=== PATIENT | male | born 1995 | race Caucasian/White ===

== ENCOUNTER 2023-05-25 08:46 | Emergency (ER) | payer SELFPAY ==
[2023-05-25] VITALS (18 sets, daily range): BP systolic 111–142; BP diastolic 72–85; PULSE 82–109; RESP 14–29; TEMP 36.4; O2SAT 96–100; BMI 42.7
--- NOTE | 2023-05-25 08:57 | ECG_ITS ---
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
--- NOTE | 2023-05-25 08:57 | ED.SYNCOPE1 ---
HPI - Syncope General Chief Complaint: Syncope Stated Complaint: SYNCOPE Time Seen by Provider: 05/25/23 08:57 History of Present Illness HPI narrative: Patient presents to emergency department via EMS with a complaint of syncope. Patient states he smoked marijuana this morning and he took [id number] Benadryl 50 mg which she normally takes without any problems. He walked over to talk to his mom and went to lean forward onto the couch and then he went backwards. As he passed out backwards mom noted that his eyes had rolled back he did not have any shaking. The episode lasted approximately 5-10 seconds. Last time he ate was last night at midnight. Patient's blood sugar was 191. Patient denies any headache. He denies any visual disturbance, speech difficulties. He denies any chest pain, or shortness of breath. She denies ever passing out before. He does not have any medical problems. Patient states maybe he hasn't been drinking enough fluids. He does not feel dizzy currently. He denies any palpitations or diaphoresis. He denied any nausea, vomiting, or diarrhea. When the patient arrived she took a sip of his drink and vomited. He did not have any hematemesis. Patient denies any cough, runny nose, sore throat or upper respiratory infection symptoms. He denies any flank pain, hematuria, dysuria. He denies any trauma. Related Data Home Medications Medication Instructions Recorded Confirmed No Known Home Medications 05/25/23 05/25/23 Allergies Allergy/AdvReac Type Severity Reaction Status Date / Time No Known Drug Allergies Allergy Verified 05/25/23 08:51 Review of Systems ROS Status of ROS 10 or more systems reviewed and unremarkable except as noted in history and below [facility] Medical History (Updated 05/25/23 @ 11:03 by Ladan Vallejo MD) Surgical History (Updated 05/25/23 @ 09:16 by Faisal Adair) Social History Smoking status: Current every day smoker Exam Narrative Exam Narrative: Nurses notes and vital signs reviewed and patient is not hypoxic. General: Nontoxic, Well-appearing and in no apparent distress. Skin: Warm, dry, no pallor noted. No Rash Head: Normocephalic, atraumatic. Neck: Supple, non-tender. Eye: Pupils are equal, round and EOMI. No scleral icterus. Ears, Nose, Mouth, and Throat: TM clear, no posterior oropharynx erythema or nasal mucosal hypertrophy, uvula is mid-line Oral mucosa is moist Cardiovascular: Regular Rate and Rhythm without murmur, gallop or rub. Respiratory: No accessory muscle use or respiratory distress. Lungs are clear to auscultation, no wheezing, rales or rhonchi Chest Wall: no tenderness Back: No midline thoracic or lumbar vertebral tenderness. No CVA tenderness Musculoskeletal: normal ROM, no calf or popliteal tenderness, no lower extremity edema/swelling GI: Abdomen is soft, non-distended. Normal bowel sounds. No masses appreciated. No tenderness to palpation. No rebound, guarding, or rigidity noted. Neurological: A&O x4. No cranial nerve dysfunction observed. No truncal ataxia. Moves all extremities. Sensation intact. Psychiatric: Cooperative and interactive. Normal mood and affect. Constitutional Vital Signs, click to edit/add: Last Vital Signs Temp 97.6 F 05/25/23 08:51 Pulse 82 05/25/23 11:06 Resp 18 05/25/23 11:06 BP 111/72 05/25/23 11:06 Pulse Ox 97 05/25/23 11:06 O2 Del Method Room Air 05/25/23 11:06 Course Vital Signs Vital signs: Vital Signs Temperature 97.6 F 05/25/23 08:51 Pulse Rate 109 H 05/25/23 08:51 Respiratory Rate 18 05/25/23 08:51 Blood Pressure 142/75 H 05/25/23 08:51 Pulse Oximetry 100 05/25/23 08:51 Oxygen Delivery Method Room Air 05/25/23 08:51 Temperature 97.6 F 05/25/23 08:51 Pulse Rate 82 05/25/23 11:06 Respiratory Rate 18 05/25/23 11:06 Blood Pressure 111/72 05/25/23 11:06 Pulse Oximetry 97 05/25/23 11:06 Oxygen Delivery Method Room Air 05/25/23 11:06 MDM - Syncope MDM Narrative Medical decision making narrative: Patient was given 1 L of normal saline. He was given antibiotics and he felt better. He denied any he was in the emergency department. Patient states he does smoke marijuana and he gets up from [place]. We discussed stopping marijuana abuse.EKG showed a sinus tachycardia without any acute ischemic changes. The patient's HI interval is slightly shortened. the patient was discussed with Dr. Jones who advised the patient to follow up with him as an outpatient. Instructed to return to the emergency department if he develops any chest pain, palpitations, shortness of breath, or if he has any CONCERNS. At this time the patient is without objective evidence of an acute process requiring hospitalization or inpatient management. The patient has remained hemodynamically stable. No additional indication for emergent studies at this time. I answered all questions. Discussed discharge instructions including standard anticipatory guidance and what should prompt a return to the emergency department, including if they get worse are not getting better or develops any new or concerning symptoms. I've given them specific time frame in which to follow-up, and who to follow-up with. The patient demonstrates understanding. Patient is nontoxic and stable for discharge with outpatient follow-up. This note was created with the assistance of a speech recognition program. Although the intention is to generate documents that actually reflects the content of the visit, no guarantees can be provided that every mistake has been identified and corrected by editing. Differential Diagnosis Differential diagnosis: Likely syncope due to orthostatic hypotension, vasovagal syncope and dehydration Lab Data Attestation: I reviewed the patient's lab results. Labs: Lab Results 05/25/23 05/25/23 Range/Units 09:12 09:17 WBC 8.6 (4.0-11.0) 10^3/uL RBC 4.78 (4.70-6.10) 10^6/uL Hgb 14.0 (14.0-18.0) g/dL Hct 42.2 (42.0-54.0) % MCV 88.3 (80.0-94.0) fL MCH 29.3 (25.9-34.0) pg MCHC 33.2 (29.9-35.2) g/dL RDW 13.3 (11.0-15.0) % Plt Count 349 (150-450) 10^3/uL MPV 9.9 (9.5-13.5) fL Neut % (Auto) 62.2 (43.0-75.0) % Lymph % (Auto) 26.8 (20.5-60.0) % [place] % (Auto) 6.4 (1.7-12.0) % Eos % (Auto) 2.3 (0.9-7.0) % Baso % (Auto) 0.7 (0.2-2.0) % Neut # (Auto) 5.3 (1.4-6.5) 10^3/uL Lymph # (Auto) 2.3 (1.2-3.8) 10^3/uL Gladwin # (Auto) 0.6 (0.3-0.8) 10^3/uL Eos # (Auto) 0.2 (0.0-0.7) 10^3/uL Baso # (Auto) 0.1 (0.0-0.1) 10^3/uL Abs Immat Gran (auto) 0.14 H (0.00-0.03) 10^3/uL Imm/Tot Granulo (auto) 1.6 H (0.0-0.5) % PT 10.6 (9.0-11.6) sec INR 1.00 APTT 24.0 (22.3-36.2) sec VBG pH 7.382 (7.330-7.430) VBG pCO2 52.5 H (40.0-52.0) mmHg Sodium 138 (136-145) mmol/L Potassium 3.3 L (3.5-5.1) mmol/L Chloride 101 (98-107) mmol/L Carbon Dioxide 29.5 (21.0-32.0) mmol/L Anion Gap 10.8 BUN 12.0 (7.0-18.0) mg/dL Creatinine 1.02 (0.70-1.30) mg/dL Est GFR ( Amer) >60 (>=60) Est GFR (Non-Af Amer) >60 (>=60) BUN/Creatinine Ratio 11.8 Glucose 198 H (74-106) mg/dL Calcium 9.2 (8.5-10.1) mg/dL Magnesium 1.9 (1.8-2.4) mg/dL Total Bilirubin 0.5 (0.2-1.0) mg/dL AST 22 (15-37) U/L ALT 21 (16-63) U/L Alkaline Phosphatase 101 (46-116) U/L Troponin I High Sens <4.0 L (4.0-76.1) pg/mL Total Protein 7.8 (6.4-8.2) g/dL Albumin 4.1 (3.4-5.0) g/dL Globulin 3.7 g/dL Albumin/Globulin Ratio 1.1 Salicylates <2.8 (<=19.9) mg/dL Acetaminophen <2.0 L (10.0-30.0) ug/mL Ethanol Quant <3 mg/dL ECG Data Attestation: I personally reviewed and interpreted this ECG as follows: Discharge Plan Discharge Chief Complaint: Syncope Clinical Impression: Marijuana abuse, Syncope, Shortened HI interval, Dehydration Patient Disposition: Home, Self-Care Time of Disposition Decision: 11:01 Condition: Good Mode of Transportation: Private Vehicle Prescriptions / Home Meds: No Action No Known Home Medications Instructions: Syncope (ED), Cannabis Use Disorder (ED) Additional Instructions: Stop marijuana abuse. Plenty of fluids. 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 Stand Alone Forms: Portal Instructions Referrals: Mohit Sadler MD [Physician] - 1 week Discharge Date/Time: 05/25/23 11:17
[2023-05-25] MEDS: 0.9 % SODIUM CHLORIDE 1,000 ML 999 ML IV (09:05)
[2023-05-25 09:25] LABS: Basophils Absolute Auto 0.1 10^3/uL (0.0-0.1); Basophils Percent Auto 0.7 % (0.2-2.0); Eosinophils Absolute Auto 0.2 10^3/uL (0.0-0.7); Eosinophils Percent Auto 2.3 % (0.9-7.0); Hematocrit 42.2 % (42.0-54.0); Immature Granulocytes Abs Auto 0.14 10^3/uL (0.00-0.03); Immature Granulocytes Pct Auto 1.6 % (0.0-0.5); Lymphocytes Absolute Auto 2.3 10^3/uL (1.2-3.8); Lymphocytes Percent Auto 26.8 % (20.5-60.0); Mean Corpuscular HGB Conc 33.2 g/dL (29.9-35.2); Mean Corpuscular Hemoglobin 29.3 pg (25.9-34.0); Mean Corpuscular Volume 88.3 fL (80.0-94.0); Mean Platelet Volume 9.9 fL (9.5-13.5); Monocytes Absolute Auto 0.6 10^3/uL (0.3-0.8); Monocytes Percent Auto 6.4 % (1.7-12.0); Neutrophils Absolute Auto 5.3 10^3/uL (1.4-6.5); Neutrophils Percent Auto 62.2 % (43.0-75.0); Platelet Count 349 10^3/uL (150-450); Red Blood Count 4.78 10^6/uL (4.70-6.10); Red Cell Distribution Width 13.3 % (11.0-15.0); White Blood Count 8.6 10^3/uL (4.0-11.0)
[2023-05-25 09:27] LABS: PCO2 VBG 52.5 mmHg (40.0-52.0); pH VBG 7.382 (7.330-7.430)
[2023-05-25 09:46] LABS: Alanine Aminotransferase 21 U/L (16-63); Albumin Globulin Ratio 1.1; Albumin Level 4.1 g/dL (3.4-5.0); Alkaline Phosphatase 101 U/L (46-116); Anion Gap 10.8; Aspartate Amino Transferase 22 U/L (15-37); BUN Creatinine Ratio 11.8; Bilirubin Total 0.5 mg/dL (0.2-1.0); Calcium 9.2 mg/dL (8.5-10.1); Carbon Dioxide 29.5 mmol/L (21.0-32.0); Chloride 101 mmol/L (98-107); Estimated GFR (African America >60 (>=60); Estimated GFR (Non-African Ame >60 (>=60); Ethanol <3 mg/dL; Globulin 3.7 g/dL; Glucose 198 mg/dL (74-106); Magnesium 1.9 mg/dL (1.8-2.4); Potassium 3.3 mmol/L (3.5-5.1); Salicylate <2.8 mg/dL (<=19.9); Sodium 138 mmol/L (136-145); Total Protein 7.8 g/dL (6.4-8.2); Troponin I High Sensitivity <4.0 pg/mL (4.0-76.1)
[2023-05-25 09:47] LABS: Acetaminophen <2.0 ug/mL (10.0-30.0); Prothrombin Time 10.6 sec (9.0-11.6)
== END 2023-05-25 11:17 | disposition home or self-care (01) ==
PROVIDERS: Emergency Provider Emergency Medicine; Family Provider Family Medicine
DX: R55 Syncope and collapse (principal); F12.10 Cannabis abuse, uncomplicated; E86.0 Dehydration; R94.31 Abnormal electrocardiogram [ECG] [EKG]; F17.210 Nicotine dependence, cigarettes, uncomplicated
CPT/HCPCS: 36415; 80053; 80179; 80307; 80320; 80329; 82800; 83735; 84484; 85025; 85610; 85730; 93005; 99284